=== PATIENT | female | born 1935 | race Caucasian/White ===

== ENCOUNTER 2018-12-31 11:02 | Outpatient (CLI) | payer MEDICARE ==
--- NOTE | 2018-12-31 11:54 | ULT ---
BILATERAL RENAL ULTRASOUND: HISTORY: Left renal calculus. Gross hematuria. FINDINGS: The right kidney measures 9.6 cm and the left kidney measures 11.1 cm in length. No right-sided hydr onephrosis or mass is seen. There is a 2.6 cm exophytic cyst arising from the left lower renal cortex. There is mild left-sided hydronephrosis with dilated left extrarenal pelvis containing a 2.8 cm shadowing calculus. The urinary bladder is unremarkable. IMPRESSION: 1. A 2.8 cm calculus in the distended left extrarenal pelvis and associated mild hydronephrosis. 2. Left renal cyst. POS: [facility]
== END 2018-12-31 11:03 | disposition home or self-care (01) ==
LOC: SCSULT 11:02
PROVIDERS: ATTEND Internal Medicine
DX: N20.0 Calculus of kidney (principal); N28.1 Cyst of kidney, acquired; N13.30 Unspecified hydronephrosis
CPT/HCPCS: 76770

== ENCOUNTER 2023-08-15 15:56 | Inpatient (IN) | payer MEDICARE, OTHER ==
[2023-08-15] MEDS ORDERED: Morphine 4 MG/ML VIAL ONE ×2 (17:25→19:06)
[2023-08-15 17:47] LABS: #Eosinphils 0.1 thou/uL (0.0-0.7); #Monocytes 0.4 thou/uL (0.11-0.59); #Neutrophils 5.7 thou/uL (1.40-6.50); %Basophils 0.1 % (0.0-1.0); %Eosinophils 1.4 % (0.0-10.0); %Lymphocytes 10.3 % (21.0-51.0); %Monocytes 5.7 % (0.0-10.0); %Neutrophils 81.2 % (42.0-75.0); Hematocrit 34.5 % (36.0-47.0); Hemoglobin 11.5 g/dL (12.0-16.0); Mean Corpuscular HGB CONC 33.3 g/dL (32.0-36.0); Mean Corpuscular Hemoglobin 33.9 pg (27.0-31.0); Mean Corpuscular Volume 101.8 fl (78.0-98.0); Mean Platelet Volume 10.4 fL (7.4-10.4); Platelet Count 205 10x3/uL (130-400); RBC Distribution Width 14.4 % (11.5-14.5); Red Blood Cell (RBC) Count 3.39 mill/uL (4.20-5.40)
[2023-08-15 18:06] LABS: INR-International Normal Ratio 3.7; Prothrombin Time 38.6 sec (12.0-14.7)
[2023-08-15 18:07] LABS: PTT 39.5 sec (22.9-36.1)
[2023-08-15 18:16] LABS: ALT (SGPT) 37 U/L (8-55); AST (SGOT) 26 U/L (5-34); Albumin 4.1 g/dL (3.4-4.8); Alkaline Phosphatase 73 U/L (40-110); Anion Gap 13 mmol/L (10-20); BUN (Urea Nitrogen) 27 mg/dL (9.8-20.1); Calc. Creatinine Clearance 0 mL/min (70-130); Calcium 9.3 mg/dL (7.8-10.44); Carbon Dioxide 25 mmol/L (23-31); Chloride 105 mmol/L (98-107); Estimated GFR 48; Globulin 2.7 g/dL (2.4-3.5); Glucose 122 mg/dL (83-110); Potassium 4.3 mmol/L (3.5-5.1); Protein, Total 6.8 g/dL (5.8-8.1); Sodium 139 mmol/L (136-145)
[2023-08-15] MEDS ORDERED: Morphine 2 MG/ML VIAL SLOW IVP PRN (19:50)
[2023-08-15] MEDS ORDERED: Sodium Chloride 0.9% 1,000 ML IV SCH (20:00)
[2023-08-15] MEDS ORDERED: Ondansetron ODT 4 MG TAB SL PRN (20:00)
[2023-08-15] MEDS ORDERED: Ondansetron PF 4 MG/2 ML Vial IVP PRN (20:00)
[2023-08-15] MEDS ORDERED: Ipratropium/Albuterol 3 ML NEB NEB PRN (22:00)
[2023-08-15] MEDS ORDERED: hydrALAZINE 20 MG/ML VIAL SLOW IVP PRN (22:00)
[2023-08-15 22:13] VITALS: BMI 25.8
[2023-08-15] MEDS ORDERED: Cyclobenzaprine 10 MG TAB PO PRN (22:28)
[2023-08-15] MEDS ORDERED: TETANUS, DIPHTHERIA TOX,ADULT (TDVAX) 0.5 ML VIAL IM ONE (23:00)
[2023-08-15 23:54] LABS: Bilirubin Negative (Negative); Blood, Urine 3+ (Negative); Clarity Turbid (Clear); Glucose, Urine (Dipstick) Normal (Negative); Ketone, Urine Negative (Negative); Leukocyte Negative Leu/uL (Negative); Nitrite Negative (Negative); Protein, Urine (Dipstick) 20 mg/dL (Neg-Trace); RBC/HPF Greater than 50 HPF (0-3); Specific Gravity, Urine 1.007 (1.002-1.036); Squamous Epithelial 0-3 HPF (0-3); Urobilinogen Normal mg/dL (Less than 2); WBC/HPF 0-3 HPF (0-3)
[2023-08-15 23:56] LABS: Bacteria/HPF 1+ HPF (None Seen)
[2023-08-16] MEDS: Acetaminophen 325 MG TAB PO SCH ×5 (00:17→23:53)
[2023-08-16] MEDS: Sodium Chloride 0.9% 1,000 ML IV SCH ×3 (00:19→18:06)
[2023-08-16] MEDS: Morphine 2 MG/ML VIAL SLOW IVP PRN ×2 (03:19→20:01)
[2023-08-16] MEDS: traMADol HCl 50 MG TAB PO PRN (03:20)
[2023-08-16 05:27] LABS: #Eosinphils 0.3 thou/uL (0.0-0.7); #Monocytes 0.9 thou/uL (0.11-0.59); #Neutrophils 8.1 thou/uL (1.40-6.50); %Basophils 0.2 % (0.0-1.0); %Eosinophils 3.2 % (0.0-10.0); %Lymphocytes 10.2 % (21.0-51.0); %Monocytes 8.5 % (0.0-10.0); %Neutrophils 77.3 % (42.0-75.0); Hematocrit 33.9 % (36.0-47.0); Mean Corpuscular HGB CONC 32.4 g/dL (32.0-36.0); Mean Corpuscular Hemoglobin 33.8 pg (27.0-31.0); Mean Corpuscular Volume 104.3 fl (78.0-98.0); Mean Platelet Volume 10.9 fL (7.4-10.4); Platelet Count 214 10x3/uL (130-400); RBC Distribution Width 14.4 % (11.5-14.5); Red Blood Cell (RBC) Count 3.25 mill/uL (4.20-5.40); White Blood Cell (WBC) Count 10.5 10x3/uL (4.8-10.8)
[2023-08-16 05:41] LABS: INR-International Normal Ratio 3.6; Prothrombin Time 37.4 sec (12.0-14.7)
[2023-08-16 05:42] LABS: PTT 48.7 sec (22.9-36.1)
[2023-08-16 05:52] LABS: Anion Gap 12 mmol/L (10-20); BUN (Urea Nitrogen) 26 mg/dL (9.8-20.1); Calc. Creatinine Clearance 40 mL/min (70-130); Calcium 9.1 mg/dL (7.8-10.44); Carbon Dioxide 27 mmol/L (23-31); Chloride 103 mmol/L (98-107); Estimated GFR 45; Glucose 130 mg/dL (83-110); Potassium 4.2 mmol/L (3.5-5.1); Sodium 138 mmol/L (136-145)
[2023-08-16 06:31] LABS: Troponin I 0.098 ng/mL (< 0.028)
[2023-08-16] MEDS ORDERED: FLU VACC QS2023(65UP)/MF59C/PF 60 MCG/0.5 ML SYRINGE IM ONE (09:00)
[2023-08-16] MEDS: Carvedilol 25 MG TAB PO SCH ×2 (09:21→16:35)
[2023-08-16] MEDS: Famotidine/PF 20 mg/2ml Vial SLOW IVP SCH (09:21)
[2023-08-16] MEDS ORDERED: Phytonadione 10 MG in Sodium Chloride 0.9% 50 ML IVPB SCH (16:00)
[2023-08-16 21:23] LABS: INR-International Normal Ratio 2.1; Prothrombin Time 24.5 sec (12.0-14.7)
[2023-08-17] MEDS: Acetaminophen 325 MG TAB PO SCH ×4 (04:59→23:18)
[2023-08-17] MEDS: Sodium Chloride 0.9% 1,000 ML IV SCH ×3 (05:00→23:21)
[2023-08-17 05:58] LABS: INR-International Normal Ratio 1.5; Prothrombin Time 19.2 sec (12.0-14.7)
[2023-08-17] MEDS ORDERED: Dexmedetomidine 200 MCG/2 ML VIAL ONE (06:17)
[2023-08-17] MEDS ORDERED: fentaNYL 50 mcg/mL 1 mL Vial ONE (07:01)
[2023-08-17] MEDS ORDERED: Midazolam HCl 2 mg/2 ml Vial ONE (07:02)
[2023-08-17] MEDS ORDERED: Ropivacaine 0.5% HCl/PF (150 MG/30 ML VIAL) ONE (07:02)
[2023-08-17] MEDS ORDERED: CEFAZOLIN 2 GM VIAL ONE (07:20)
[2023-08-17] MEDS ORDERED: Sodium Chloride 0.9% 100 ML ONE (07:20)
[2023-08-17] MEDS ORDERED: fentaNYL PF 100 MCG/2 ML SYRINGE ONE (07:29)
[2023-08-17] MEDS ORDERED: Rocuronium Bromide 10 MG/ML (10ML VIAL) ONE ×2 (07:29→07:43)
[2023-08-17] MEDS ORDERED: PROPOFOL 20 ML ONE (07:29)
[2023-08-17] MEDS ORDERED: PHENYLEPHRINE-NS 100 MCG/ML 10 ML SYRINGE ONE ×2 (07:33→07:43)
[2023-08-17] MEDS ORDERED: Ketorolac Tromethamine 30 MG/ML VIAL ONE (07:43)
[2023-08-17] MEDS ORDERED: PROPOFOL 200 MG/20 ML VIAL ONE (07:43)
[2023-08-17] MEDS ORDERED: Glycopyrrolate 0.2 MG/ML 5 ML SYRINGE ONE ×2 (07:43→09:30)
[2023-08-17] MEDS ORDERED: Dexamethasone 20 MG/5 ML VIAL ONE (07:43)
[2023-08-17] MEDS ORDERED: NEOSTIGMINE 3 MG/3 ML SYR 3 MG/3 ML SYRINGE ONE ×2 (07:43→09:30)
[2023-08-17] MEDS ORDERED: Ondansetron PF 4 MG/2 ML Vial ONE (07:43)
[2023-08-17 07:54] LABS: #Eosinphils 0.4 thou/uL (0.0-0.7); #Monocytes 1.1 thou/uL (0.11-0.59); #Neutrophils 8.1 thou/uL (1.40-6.50); %Basophils 0.1 % (0.0-1.0); %Eosinophils 3.9 % (0.0-10.0); %Lymphocytes 10.1 % (21.0-51.0); %Neutrophils 75.3 % (42.0-75.0); Hematocrit 34.1 % (36.0-47.0); Hemoglobin 10.9 g/dL (12.0-16.0); Mean Corpuscular Hemoglobin 33.9 pg (27.0-31.0); Mean Corpuscular Volume 105.9 fl (78.0-98.0); Platelet Count 172 10x3/uL (130-400); RBC Distribution Width 14.3 % (11.5-14.5); Red Blood Cell (RBC) Count 3.22 mill/uL (4.20-5.40); White Blood Cell (WBC) Count 10.8 10x3/uL (4.8-10.8)
[2023-08-17] MEDS ORDERED: CEFAZOLIN 2 GM in Sodium Chloride 0.9% 100 ML IVPB SCH (08:00)
[2023-08-17] MEDS ORDERED: Phenylephrine 40 MG/NS 250 ML 250 ML ONE (08:02)
[2023-08-17 08:07] LABS: ALT (SGPT) 23 U/L (8-55); AST (SGOT) 16 U/L (5-34); Albumin 3.4 g/dL (3.4-4.8); Alkaline Phosphatase 60 U/L (40-110); Anion Gap 13 mmol/L (10-20); BUN (Urea Nitrogen) 23 mg/dL (9.8-20.1); Bilirubin, Total 1.9 mg/dL (0.2-1.2); Calc. Creatinine Clearance 47 mL/min (70-130); Calcium 8.8 mg/dL (7.8-10.44); Carbon Dioxide 23 mmol/L (23-31); Chloride 107 mmol/L (98-107); Estimated GFR 56; Globulin 2.5 g/dL (2.4-3.5); Glucose 97 mg/dL (83-110); Potassium 4.2 mmol/L (3.5-5.1); Protein, Total 5.9 g/dL (5.8-8.1); Sodium 139 mmol/L (136-145)
[2023-08-17] MEDS: Carvedilol 25 MG TAB PO SCH ×2 (09:03→17:35)
[2023-08-17] MEDS ORDERED: traMADol HCl 50 MG TAB PO PRN ×2 (09:06→09:15)
[2023-08-17] MEDS: Famotidine/PF 20 mg/2ml Vial SLOW IVP SCH (11:32)
[2023-08-17] MEDS: CEFAZOLIN 2 GM in Sodium Chloride 0.9% 100 ML IVPB SCH ×2 (13:22→22:07)
[2023-08-17] MEDS: traMADol HCl 50 MG TAB PO PRN (22:06)
[2023-08-18] MEDS: CEFAZOLIN 2 GM in Sodium Chloride 0.9% 100 ML IVPB SCH (05:37)
[2023-08-18] MEDS: Acetaminophen 325 MG TAB PO SCH ×4 (05:39→23:19)
[2023-08-18 07:48] LABS: #Monocytes 1.4 thou/uL (0.11-0.59); #Neutrophils 11.6 thou/uL (1.40-6.50); %Basophils 0.1 % (0.0-1.0); %Eosinophils 0.1 % (0.0-10.0); %Lymphocytes 4.1 % (21.0-51.0); %Monocytes 10.1 % (0.0-10.0); %Neutrophils 84.9 % (42.0-75.0); Hematocrit 26.7 % (36.0-47.0); Hemoglobin 8.7 g/dL (12.0-16.0); Mean Corpuscular HGB CONC 32.6 g/dL (32.0-36.0); Mean Corpuscular Volume 104.3 fl (78.0-98.0); Platelet Count 145 10x3/uL (130-400); RBC Distribution Width 14.6 % (11.5-14.5); Red Blood Cell (RBC) Count 2.56 mill/uL (4.20-5.40); White Blood Cell (WBC) Count 13.7 10x3/uL (4.8-10.8)
[2023-08-18] MEDS: Folic Acid 1 MG TAB PO SCH (08:44)
[2023-08-18] MEDS: PARoxetine 20 MG TAB PO SCH (08:44)
[2023-08-18] MEDS: Famotidine/PF 20 mg/2ml Vial SLOW IVP SCH (08:44)
[2023-08-18] MEDS: Carvedilol 25 MG TAB PO SCH ×2 (08:47→17:38)
[2023-08-18] MEDS: Sodium Chloride 0.9% 1,000 ML IV SCH ×2 (08:58→20:41)
[2023-08-18] MEDS: traMADol HCl 50 MG TAB PO PRN (10:42)
[2023-08-19] MEDS: Acetaminophen 325 MG TAB PO SCH ×4 (05:18→23:39)
[2023-08-19 06:17] LABS: #Eosinphils 0.3 thou/uL (0.0-0.7); #Monocytes 1.2 thou/uL (0.11-0.59); #Neutrophils 8.5 thou/uL (1.40-6.50); %Basophils 0.2 % (0.0-1.0); %Eosinophils 2.5 % (0.0-10.0); %Lymphocytes 10.1 % (21.0-51.0); %Monocytes 10.9 % (0.0-10.0); %Neutrophils 75.4 % (42.0-75.0); Hematocrit 25.5 % (36.0-47.0); Mean Corpuscular HGB CONC 31.4 g/dL (32.0-36.0); Mean Corpuscular Hemoglobin 33.1 pg (27.0-31.0); Mean Corpuscular Volume 105.4 fl (78.0-98.0); Mean Platelet Volume 10.9 fL (7.4-10.4); Platelet Count 153 10x3/uL (130-400); RBC Distribution Width 14.5 % (11.5-14.5); Red Blood Cell (RBC) Count 2.42 mill/uL (4.20-5.40); White Blood Cell (WBC) Count 11.2 10x3/uL (4.8-10.8)
[2023-08-19 06:43] LABS: ALT (SGPT) Less than 7 U/L (8-55); AST (SGOT) 17 U/L (5-34); Albumin 2.9 g/dL (3.4-4.8); Alkaline Phosphatase 49 U/L (40-110); Anion Gap 13 mmol/L (10-20); BUN (Urea Nitrogen) 28 mg/dL (9.8-20.1); Calc. Creatinine Clearance 43 mL/min (70-130); Calcium 8.7 mg/dL (7.8-10.44); Carbon Dioxide 24 mmol/L (23-31); Chloride 106 mmol/L (98-107); Estimated GFR 50; Globulin 2.5 g/dL (2.4-3.5); Glucose 100 mg/dL (83-110); Potassium 3.9 mmol/L (3.5-5.1); Protein, Total 5.4 g/dL (5.8-8.1); Sodium 139 mmol/L (136-145)
[2023-08-19] MEDS: Folic Acid 1 MG TAB PO SCH (08:42)
[2023-08-19] MEDS: Sodium Chloride 0.9% 1,000 ML IV SCH ×2 (08:43→16:22)
[2023-08-19] MEDS: Famotidine/PF 20 mg/2ml Vial SLOW IVP SCH (08:43)
[2023-08-19] MEDS: PARoxetine 20 MG TAB PO SCH (08:43)
[2023-08-19] MEDS: Carvedilol 25 MG TAB PO SCH ×2 (08:45→16:25)
[2023-08-19] MEDS: Warfarin Sodium 5 MG TAB PO SCH (13:56)
[2023-08-20] MEDS: Acetaminophen 325 MG TAB PO SCH ×4 (05:44→23:21)
[2023-08-20 05:46] LABS: INR-International Normal Ratio 1.3; Prothrombin Time 16.4 sec (12.0-14.7)
[2023-08-20] MEDS: PARoxetine 20 MG TAB PO SCH (08:35)
[2023-08-20] MEDS: Carvedilol 25 MG TAB PO SCH ×2 (08:35→17:53)
[2023-08-20] MEDS: Famotidine/PF 20 mg/2ml Vial SLOW IVP SCH (08:35)
[2023-08-20] MEDS: Folic Acid 1 MG TAB PO SCH (08:36)
[2023-08-20] MEDS: Warfarin Sodium 5 MG TAB PO SCH (13:38)
[2023-08-21] MEDS: Acetaminophen 325 MG TAB PO SCH ×2 (06:05→09:02)
[2023-08-21 06:26] LABS: INR-International Normal Ratio 1.3; Prothrombin Time 16.9 sec (12.0-14.7)
[2023-08-21] MEDS: Famotidine/PF 20 mg/2ml Vial SLOW IVP SCH (09:04)
[2023-08-21] MEDS: Carvedilol 25 MG TAB PO SCH (09:05)
[2023-08-21] MEDS: Folic Acid 1 MG TAB PO SCH (09:05)
[2023-08-21] MEDS: PARoxetine 20 MG TAB PO SCH (09:05)
[2023-08-21 12:07] VITALS: BP 120/51; TEMP 97.5
[2023-08-23] MEDS ORDERED: Warfarin Sodium 7.5 MG TAB PO SCH (13:00)
== END 2023-08-21 12:30 | DRG 522 ==
LOC: ERS 15:56 → SURG B 18:05
PROVIDERS: ADMIT Surgery; ATTEND Surgery
PROC: 0SRS0J9 Replacement of Left Hip Joint, Femoral Surface with Synthetic Substitute, Cemented, Open Approach (ICD-10-PCS; principal; 2023-08-17)
DX: S72.002A Fracture of unspecified part of neck of left femur, initial encounter for closed fracture (principal); M06.9 Rheumatoid arthritis, unspecified; K74.60 Unspecified cirrhosis of liver; K76.0 Fatty (change of) liver, not elsewhere classified; K21.9 Gastro-esophageal reflux disease without esophagitis; W18.30XA Fall on same level, unspecified, initial encounter; I48.91 Unspecified atrial fibrillation; G89.11 Acute pain due to trauma; Z79.01 Long term (current) use of anticoagulants; Z90.710 Acquired absence of both cervix and uterus; Z87.891 Personal history of nicotine dependence
CPT/HCPCS: 36415; 70450; 72040; 72125; 72170; 80048; 80053; 81001; 83880; 84484; 85025; 85610; 85730; 90471; 90694; 90714; 93005; 93010; 93306; 96374; 96376; C1713; C1776; G0008; J1100; J1885; J2250; J2270; J2272; J2405; J2704; J2795; J3010; J3430; J3490; J7050; S0028

== ENCOUNTER 2024-08-14 10:07 | Outpatient (CLI) | payer MEDICARE, OTHER | END 2024-08-14 10:08 | disposition home or self-care (01) | LOC: LABBT 10:07 | PROVIDERS: ATTEND Internal Medicine Cardiovascular Disease | DX: Z01.818 Encounter for other preprocedural examination (principal); I48.19 Other persistent atrial fibrillation; D50.9 Iron deficiency anemia, unspecified | CPT/HCPCS: 80053; 85025; 85610; 85730; 86850; 86900; 86901; 93005; 93010 ==

== ENCOUNTER 2024-08-14 10:30 | Inpatient (IN) | payer MEDICARE, OTHER ==
[2024-08-14 10:33] VITALS: BMI 23.2
[2024-08-14 13:00] LABS: #Basophils 0.03 10x3/uL (0.0-0.2); %Basophils 0.5 % (0.0-1.0); %Eosinophils 4.2 % (0.0-10.0); %Lymphocytes 21.3 % (21.0-51.0); %Monocytes 9.5 % (0.0-10.0); %Neutrophils 63.8 % (42.0-75.0); Hematocrit 36.5 % (36.0-47.0); Hemoglobin 11.8 g/dL (12.0-16.0); Mean Corpuscular HGB CONC 32.3 g/dL (32.0-36.0); Mean Corpuscular Hemoglobin 31.3 pg (27.0-31.0); Mean Corpuscular Volume 96.8 fL (78.0-98.0); Mean Platelet Volume 10.4 fL (7.4-10.4); Platelet Count 246 10x3/uL (130-400); RBC Distribution Width 15.7 % (11.5-14.5); Red Blood Cell (RBC) Count 3.77 mill/uL (4.20-5.40)
[2024-08-14 13:11] LABS: INR-International Normal Ratio 2.4; Prothrombin Time 26.5 sec (12.0-14.7)
[2024-08-14 13:13] LABS: PTT 40.6 sec (22.9-36.1)
[2024-08-14 13:19] LABS: ALT (SGPT) 12 U/L (8-55); AST (SGOT) 18 U/L (5-34); Alkaline Phosphatase 89 U/L (40-110); Anion Gap 16 mmol/L (10-20); BUN (Urea Nitrogen) 26 mg/dL (9.8-20.1); Bilirubin, Total 0.6 mg/dL (0.2-1.2); Calc. Creatinine Clearance 0 mL/min (70-130); Calcium 9.5 mg/dL (7.8-10.44); Carbon Dioxide 23 mmol/L (23-31); Chloride 107 mmol/L (98-107); Estimated GFR 41; Globulin 3.3 g/dL (2.4-3.5); Glucose 102 mg/dL (83-110); Potassium 4.7 mmol/L (3.5-5.1); Protein, Total 7.3 g/dL (5.8-8.1); Sodium 141 mmol/L (136-145)
[2024-08-18] MEDS ORDERED: CEFAZOLIN 2 GM VIAL ONE (10:28)
[2024-08-18] MEDS ORDERED: Heparin 10,000 UNITS/ 10 ML VIAL ONE (10:28)
[2024-08-18] MEDS ORDERED: Protamine Sulfate 50 MG/5 ML VIAL ONE (10:28)
[2024-08-18] MEDS ORDERED: fentaNYL 50 mcg/mL 1 mL Vial ONE ×3 (11:47→14:02)
[2024-08-18] MEDS ORDERED: Ondansetron PF 4 MG/2 ML Vial ONE (11:58)
[2024-08-18] MEDS ORDERED: Rocuronium Bromide 10 MG/ML (10ML VIAL) ONE (11:58)
[2024-08-18] MEDS ORDERED: Dexamethasone 20 MG/5 ML VIAL ONE (11:58)
[2024-08-18] MEDS ORDERED: PROPOFOL 200 MG/20 ML VIAL ONE (11:58)
[2024-08-18] MEDS ORDERED: Iopamidol 370 76% 100 ML VIAL ONE (12:40)
[2024-08-18] MEDS ORDERED: SUGAMMADEX SODIUM 200 MG/2 ML VIAL ONE (13:02)
== END 2024-08-18 16:25 | disposition home or self-care (01) | DRG 274 ==
LOC: SURG B 08-18 09:40 → EDSTATUS 08-18 13:55
PROVIDERS: ADMIT Internal Medicine Cardiovascular Disease; ATTEND Internal Medicine Cardiovascular Disease
PROC: 02L73DK Occlusion of Left Atrial Appendage with Intraluminal Device, Percutaneous Approach (ICD-10-PCS; principal; 2024-08-18)
PROC: B245ZZ4 Ultrasonography of Left Heart, Transesophageal (ICD-10-PCS; 2024-08-18)
DX: I48.19 Other persistent atrial fibrillation (principal); Z00.6 Encounter for examination for normal comparison and control in clinical research program; I47.20 Ventricular tachycardia, unspecified; D50.0 Iron deficiency anemia secondary to blood loss (chronic); I10 Essential (primary) hypertension; K74.60 Unspecified cirrhosis of liver; M06.9 Rheumatoid arthritis, unspecified; I44.2 Atrioventricular block, complete; M19.90 Unspecified osteoarthritis, unspecified site; F32.A Depression, unspecified; Z95.0 Presence of cardiac pacemaker; Z79.890 Hormone replacement therapy; Z79.899 Other long term (current) drug therapy; Z79.01 Long term (current) use of anticoagulants; Z90.710 Acquired absence of both cervix and uterus
CPT/HCPCS: 33340; 80053; 85025; 85347; 85610; 85730; 86850; 86900; 86901; 93306; 93312; C1759; C1760; C1889; C1894; J1100; J1644; J2405; J2704; J2720; J3010

== ENCOUNTER 2024-09-29 06:38 | Day surgery (SDC) | payer MEDICARE, OTHER ==
[2024-09-26 09:53] VITALS: BMI 22.7
[2024-09-29] MEDS ORDERED: PROPOFOL 40 ML ONE (06:51)
[2024-09-29] MEDS ORDERED: PHENYLEPHRINE-NS 100 MCG/ML 10 ML SYRINGE ONE (06:51)
[2024-09-29] MEDS ORDERED: Etomidate 40 MG (20 mL) VIAL ONE (06:52)
[2024-09-29] MEDS ORDERED: Lidocaine 1% (PF) 30 ML VIAL ONE (06:52)
== END 2024-09-29 08:56 | disposition home or self-care (01) ==
LOC: SDC 06:38
PROVIDERS: ATTEND Internal Medicine Cardiovascular Disease
PROC: B24BZZ4 Ultrasonography of Heart with Aorta, Transesophageal (ICD-10-PCS; principal; 2024-09-29)
DX: I48.19 Other persistent atrial fibrillation (principal); Z95.0 Presence of cardiac pacemaker; Z95.818 Presence of other cardiac implants and grafts; Z88.8 Allergy status to other drugs, medicaments and biological substances; Z79.01 Long term (current) use of anticoagulants
CPT/HCPCS: 93312; J2704

== ENCOUNTER 2025-08-12 04:02 | Inpatient (IN) | payer MEDICARE, OTHER ==
[2025-08-12] MEDS ORDERED: metroNIDAZOLE 500 MG (100 mL) BAG ONE (05:19)
[2025-08-12 05:39] LABS: #Basophils Less than 0.03 10x3/uL (0.0-0.2); #Eosinophils 0.04 10x3/uL (0.0-0.7); #Monocytes 0.84 10x3/uL (0.11-0.59); #Neutrophils 9.50 10x3/uL (1.40-6.50); %Basophils 0.2 % (0.0-1.0); %Eosinophils 0.4 % (0.0-10.0); %Lymphocytes 7.5 % (21.0-51.0); %Monocytes 7.4 % (0.0-10.0); %Neutrophils 83.8 % (42.0-75.0); Hematocrit 37.3 % (36.0-47.0); Hemoglobin 12.0 g/dL (12.0-16.0); Mean Corpuscular Hemoglobin 31.6 pg (27.0-31.0); Mean Corpuscular Volume 98.2 fL (78.0-98.0); Platelet Count 238 10x3/uL (130-400); Red Blood Cell (RBC) Count 3.80 mill/uL (4.20-5.40); White Blood Cell (WBC) Count 11.33 10x3/uL (4.8-10.8)
[2025-08-12 05:54] LABS: ALT (SGPT) 12 U/L (Less than 34); AST (SGOT) 31 U/L (11-34); Albumin 4.2 g/dL (3.1-4.5); Alkaline Phosphatase 96 U/L (40-110); Anion Gap 17 mmol/L (10-20); BUN (Urea Nitrogen) 28 mg/dL (9.8-20.1); Bilirubin, Total 0.8 mg/dL (0.3-1.2); Calc. Creatinine Clearance 0 mL/min (70-130); Calcium 9.9 mg/dL (7.8-10.44); Carbon Dioxide 24 mmol/L (23-31); Chloride 103 mmol/L (98-107); Globulin 3.3 g/dL (2.4-3.5); Glucose 122 mg/dL (83-110); Lipase 38 U/L (8-78); Magnesium 1.7 mg/dL (1.6-2.6); Potassium 4.6 mmol/L (3.5-5.1); Sodium 139 mmol/L (136-145)
[2025-08-12 05:57] LABS: INR-International Normal Ratio 1.1; PTT 32.1 sec (22.9-36.1); Prothrombin Time 14.4 sec (12.0-14.7)
[2025-08-12 06:39] LABS: Bacteria/HPF None Seen HPF (None Seen); CAUTI Indications for Culture Dysuria,urgency,freq; Glucose, Urine (Dipstick) Normal (Negative); Leukocyte Negative Leu/uL (Negative); Protein, Urine (Dipstick) Negative (Neg-Trace); RBC/HPF 0-3 HPF (0-3); Specific Gravity, Urine 1.035 (1.002-1.036); WBC/HPF 0-3 HPF (0-3)
[2025-08-12 06:41] LABS: Urine Culture Reflex No No
[2025-08-12] MEDS ORDERED: Glucagon 1 MG/ML KIT IM PRN (06:41)
[2025-08-12] MEDS ORDERED: Methocarbamol 500 MG TAB PO PRN (06:41)
[2025-08-12] MEDS ORDERED: Dextrose 50% Abboject 50 ML SYRINGE SLOW IVP PRN (06:41)
[2025-08-12] MEDS ORDERED: Ondansetron PF 4 MG/2 ML Vial IVP PRN (06:41)
[2025-08-12] MEDS ORDERED: hydrALAZINE 20 MG/ML VIAL SLOW IVP PRN (06:41)
[2025-08-12] MEDS: Senokot S 8.6-50 MG TAB PO SCH (10:59)
[2025-08-12 13:30] VITALS: BMI 23.0
[2025-08-12] MEDS ORDERED: Etomidate 40 MG (20 mL) VIAL ONE (17:04)
[2025-08-12] MEDS ORDERED: fentaNYL PF 100 MCG/2 ML SYRINGE ONE (17:04)
[2025-08-12] MEDS ORDERED: Lidocaine 1% PF 5 ML VIAL ONE (17:05)
[2025-08-12] MEDS ORDERED: Bupivacaine 0.25% HCL 30 ML VIAL ONE (17:15)
[2025-08-12] MEDS ORDERED: Rocuronium Bromide 10 MG/ML (10ML VIAL) ONE (17:53)
[2025-08-12] MEDS ORDERED: Ondansetron PF 4 MG/2 ML Vial ONE (18:00)
[2025-08-12] MEDS ORDERED: SUGAMMADEX SODIUM 200 MG/2 ML VIAL ONE (18:35)
[2025-08-13 04:27] LABS: #Basophils Less than 0.03 10x3/uL (0.0-0.2); #Eosinophils Less than 0.03 10x3/uL (0.0-0.7); #Monocytes 0.57 10x3/uL (0.11-0.59); #Neutrophils 14.05 10x3/uL (1.40-6.50); %Basophils 0.1 % (0.0-1.0); %Eosinophils 0.0 % (0.0-10.0); %Lymphocytes 2.6 % (21.0-51.0); %Monocytes 3.8 % (0.0-10.0); %Neutrophils 92.9 % (42.0-75.0); Hematocrit 36.5 % (36.0-47.0); Hemoglobin 11.2 g/dL (12.0-16.0); Mean Corpuscular Hemoglobin 31.5 pg (27.0-31.0); Mean Corpuscular Volume 102.5 fL (78.0-98.0); Platelet Count 201 10x3/uL (130-400); Red Blood Cell (RBC) Count 3.56 mill/uL (4.20-5.40); White Blood Cell (WBC) Count 15.12 10x3/uL (4.8-10.8)
[2025-08-13 04:42] LABS: Anion Gap 15 mmol/L (10-20); BUN (Urea Nitrogen) 23 mg/dL (9.8-20.1); Calc. Creatinine Clearance 37 mL/min (70-130); Calcium 9.2 mg/dL (7.8-10.44); Carbon Dioxide 20 mmol/L (23-31); Chloride 106 mmol/L (98-107); Glucose 153 mg/dL (83-110); Potassium 4.7 mmol/L (3.5-5.1); Sodium 136 mmol/L (136-145)
[2025-08-13] MEDS: Acetaminophen 325 MG TAB PO PRN (06:52)
[2025-08-13 09:07] LABS: ALT (SGPT) 28 U/L (Less than 34); AST (SGOT) 58 U/L (11-34); Albumin 3.5 g/dL (3.1-4.5); Alkaline Phosphatase 73 U/L (40-110); Bilirubin, Direct 0.4 mg/dL (0.1-0.3); Bilirubin, Total 0.9 mg/dL (0.3-1.2)
[2025-08-13] MEDS: PARoxetine 20 MG TAB PO SCH (13:09)
[2025-08-13] MEDS: Spironolactone 25 MG TAB PO SCH (13:09)
[2025-08-13] MEDS: Carvedilol 25 MG TAB PO SCH (17:27)
[2025-08-13] MEDS: Amoxicillin/Potassium Clav 875 MG TAB PO SCH (21:17)
[2025-08-14 04:26] VITALS: TEMP 97.5
[2025-08-14 04:30] LABS: #Basophils Less than 0.03 10x3/uL (0.0-0.2); #Eosinophils 0.03 10x3/uL (0.0-0.7); #Monocytes 0.95 10x3/uL (0.11-0.59); #Neutrophils 10.62 10x3/uL (1.40-6.50); %Basophils 0.1 % (0.0-1.0); %Eosinophils 0.2 % (0.0-10.0); %Lymphocytes 5.0 % (21.0-51.0); %Monocytes 7.7 % (0.0-10.0); %Neutrophils 86.5 % (42.0-75.0); Hematocrit 32.5 % (36.0-47.0); Hemoglobin 10.4 g/dL (12.0-16.0); Mean Corpuscular Hemoglobin 32.0 pg (27.0-31.0); Mean Corpuscular Volume 100.0 fL (78.0-98.0); Platelet Count 170 10x3/uL (130-400); Red Blood Cell (RBC) Count 3.25 mill/uL (4.20-5.40); White Blood Cell (WBC) Count 12.28 10x3/uL (4.8-10.8)
[2025-08-14 04:39] LABS: Anion Gap 11 mmol/L (10-20); BUN (Urea Nitrogen) 30 mg/dL (9.8-20.1); Calc. Creatinine Clearance 34 mL/min (70-130); Calcium 8.9 mg/dL (7.8-10.44); Carbon Dioxide 25 mmol/L (23-31); Chloride 105 mmol/L (98-107); Glucose 115 mg/dL (83-110); Potassium 4.3 mmol/L (3.5-5.1); Sodium 137 mmol/L (136-145)
[2025-08-14] MEDS: Spironolactone 25 MG TAB PO SCH (09:28)
[2025-08-14] MEDS: PARoxetine 20 MG TAB PO SCH (09:29)
[2025-08-14 12:01] VITALS: BP 107/69
== END 2025-08-14 12:16 | disposition home or self-care (01) | DRG 419 ==
LOC: ERS 04:02 → ERHOLD 06:41 → 2SE 09:53
PROVIDERS: ADMIT Surgery; ATTEND Surgery
PROC: 0FT44ZZ Resection of Gallbladder, Percutaneous Endoscopic Approach (ICD-10-PCS; principal; 2025-08-12)
PROC: 8E0W4CZ Robotic Assisted Procedure of Trunk Region, Percutaneous Endoscopic Approach (ICD-10-PCS; 2025-08-12)
PROC: BF141ZZ Fluoroscopy of Gallbladder, Bile Ducts and Pancreatic Ducts using Low Osmolar Contrast (ICD-10-PCS; 2025-08-12)
PROC: 3E03329 Introduction of Other Anti-infective into Peripheral Vein, Percutaneous Approach (ICD-10-PCS; 2025-08-13)
DX: K81.0 Acute cholecystitis (principal); E78.5 Hyperlipidemia, unspecified; Z66 Do not resuscitate; M19.90 Unspecified osteoarthritis, unspecified site; Z98.890 Other specified postprocedural states; K75.81 Nonalcoholic steatohepatitis (NASH); Z79.899 Other long term (current) drug therapy; Z88.8 Allergy status to other drugs, medicaments and biological substances
CPT/HCPCS: 36415; 76705; 80048; 80053; 80076; 83605; 83690; 83735; 84484; 85025; 85610; 85730; 88304; 93005; 96365; C1713; C1889; J0169; J0665; J1100; J2270; J2272; J2405; J3010; J7120; S2900